=== PATIENT | female | born 1955 | race Caucasian/White ===

== ENCOUNTER 2020-04-16 08:56 | Outpatient (CLI) | payer OTHER, SELFPAY ==
--- NOTE | ~2020-04-16 | MM_ITS ---
EXAMINATION: MM screening [facility] BI w april HISTORY: Screening mammogram TECHNIQUE: Craniocaudal and mediolateral oblique 3-D tomosynthesis images were obtained and synthetic 2-D images were generated. CAD analysis was submitted and interpreted. COMPARISON: 01/28/2019, 10/11/2017, 09/25/2016 bilateral digital screening mammogram examinations BREAST PARENCHYMAL COMPOSITION: There are scattered areas of fibroglandular density. FINDINGS: Occasional benign calcifications. Stable mild fibroglandular asymmetry. There is no evidenc e of suspicious mass, calcification, or architectural distortion to suggest malignancy in either [address]. There has been no suspicious interval change. IMPRESSION: 1. No mammographic evidence of malignancy. 2. Recommend routine screening mammography in one year. BI-RADS Category 2: Benign finding(s). Reviewed, dictated and finalized at location A.
== END 2020-04-16 08:57 | disposition home or self-care (01) ==
PROVIDERS: PCP Internal Medicine; Visit Provider Internal Medicine
DX: Z12.31 Encounter for screening mammogram for malignant neoplasm of breast (principal)
CPT/HCPCS: 77063; 77067

== ENCOUNTER 2020-09-27 01:52 | Outpatient (CLI) | payer OTHER, SELFPAY ==
[2020-09-27 18:35] LABS: SARS-CoV-2 RNA PCR Negative
== END 2020-09-27 01:53 | disposition home or self-care (01) ==
LOC: ANHCOVIDDT 01:52
PROVIDERS: PCP Internal Medicine; Visit Provider Surgery
DX: Z01.812 Encounter for preprocedural laboratory examination (principal); Z20.828 Contact with and (suspected) exposure to other viral communicable diseases
CPT/HCPCS: 87635; C9803; U0003

== ENCOUNTER 2020-09-30 00:12 | Day surgery (SDC) | payer OTHER, SELFPAY ==
[2020-09-23 08:21] VITALS: BMI 24.5
--- NOTE | 2020-09-29 12:14 | P.PNAN_ITS ---
Anes - Initial Pre Proc Eval Procedure: Operation Date: 09/30/20 07:30 Proposed Procedures p Screening Colonoscopy - Hugo Braga DO Date/Time: 09/29/20 12:14 Surgeon: Hugo Braga DO Pre Op Diagnosis: History Of Colon Polyps Patient Data Age: 64 Gender: F Height: 1.73 m Weight: 73 kg Allergies Allergy/AdvReac Type Severity Reaction Status Date / Time No Known Allergies Allergy Verified 09/30/20 06:19 Home Medications Medication Instructions Recorded Confirmed Type calcium carbonate-vitamin D3 1 tablet PO DAILY 09/23/20 09/30/20 History [Calcium with Vitamin D] lisinopril 5 mg PO DAILY 09/23/20 09/30/20 History magnesium 400 mg PO DAILY 09/23/20 09/30/20 History Patient hx anesthesia problems: none Family hx anesthesia problems: none [facility] Past Medical History Medical History (Updated 09/29/20 @ 12:15 by Mitesh Christian DO) Hypertension Surgical History Surgical History (Updated 09/29/20 @ 12:15 by Mitesh Christian DO) History of bilateral breast reduction surgery Family History Family History (System 10/20/19 @ 16:32 by Tila Gardner) Other Family history of arthritis Hypertension Social History Social History (System 10/20/19 @ 16:32 by Tila Gardner) Smoking status: Never smoker Alcohol intake: current Drinks per week: 7 Alcohol use details: one glass of wine daily Living arrangements: with family Gender identity (if verbalized by the patient): Female Spiritual care concerns: No Anes - Eval Final PreProcedure Day of Procedure 09/29/20 12:14 Patient weight: normal Heart: regular rate and rhythm Lungs: clear to auscultation and normal air movement Airway: Mallampati scale class 1 Neurological: alert and oriented Last oral intake: >/= 8 hours ASA classification: II Emergent: no Anesthetic plan: proceed Anesthesia type and monitoring: general GIVS and standard monitoring Informed Consent: The patient's anesthetic plan and its attendant risks and benefits were discussed with the patient/family/POA. Questions were solicited and answers provided to the satisfaction of the patient/family/POA.
[2020-09-30 06:21] VITALS: BP 143/81; PULSE 68; RESP 16; TEMP 37; O2SAT 99
[2020-09-30] MEDS: LACTATED RINGERS 1,000 ML 150 ML IV CONT (06:29)
--- NOTE | 2020-09-30 07:30 | PM.IMHP ---
H&P: HPI History of Present Illness Date/Time: 09/30/20 07:30 Chief Complaint: hx colon polyps Narrative: Kylie Olson is a 65 year old female who presents for colonoscopy. Last done 5 years ago. Polyps removed at that time. No fam hx colon cancer. Her mom does have UC. She denies any major changes in the last 5 years. Review of Systems Review of Systems: All systems reviewed & are unremarkable except as noted in HPI and below Constitutional: Constitutional: Denies chills, Denies fever(s), Denies headache(s) and Denies weight loss Eyes: Eyes: Denies change in vision ENT: Denies dizziness, Denies headache(s), Denies neck mass and Denies throat swelling Cardiovascular: Cardiovascular: Denies chest pain, Denies lightheadedness and Denies dyspnea Respiratory: Respiratory: Denies cough, Denies dyspnea and Denies wheezing Gastrointestinal: Gastrointestinal: Denies abdominal pain, Denies change in bowel habits, Denies nausea and Denies vomiting Genitourinary: Genitourinary: Denies hematuria and Denies dysuria Musculoskeletal: Musculoskeletal: Reports as per HPI Integumentary/Breasts: Skin/Breast: Reports as per HPI Neurologic: Denies dizziness and Denies headache(s) Allergic/Immunologic: Allergic/Immunologic: Denies throat swelling and Denies wheezing PMFSH Past Medical History Medical History Hypertension Surgical History Surgical History History of bilateral breast reduction surgery Family History Family History Other Family history of arthritis Hypertension Social History Social History Smoking status: Never smoker Alcohol intake: current Drinks per week: 7 Alcohol use details: one glass of wine daily Living arrangements: with family Gender identity (if verbalized by the patient): Female Spiritual care concerns: No Meds Home Medications and Allergies Home Medications Medication Instructions Recorded Confirmed Type calcium carbonate-vitamin D3 1 tablet PO DAILY 09/23/20 09/30/20 History [Calcium with Vitamin D] lisinopril 5 mg PO DAILY 09/23/20 09/30/20 History magnesium 400 mg PO DAILY 09/23/20 09/30/20 History Allergies Allergy/AdvReac Type Severity Reaction Status Date / Time No Known Allergies Allergy Verified 09/30/20 06:19 Vital Signs Vital Signs - 24 hr 09/30/20 06:21 Temperature 37.0 C Pulse Rate 68 Respiratory Rate 16 Blood Pressure 143/81 H Pulse Oximetry 99 Exam Const: General: no acute distress and alert Orientation/consciousness: patient oriented x3 HENMT: Head: normocephalic and atraumatic Ears: hearing grossly normal bilaterally General nose exam: Normal nares present Mouth: Yes Normal oral and palatal mucosa present Eyes: Periorbital: periorbital findings normal Sclera: sclerae normal EOM: EOMs intact bilaterally Neck: Neck: normal visual inspection, no lymphadenopathy and trachea midline Chest: Chest palpation & inspection: normal inspection of the chest Resp: Effort & Inspection: normal respiratory effort Auscultation: clear to auscultation bilaterally Cardio: Jugular venous distension: no JVD Rate: regular rate Rhythm: regular rhythm Heart sounds: S1 normal heart sound present and S2 normal heart sound present Peripheral pulses: Peripheral pulses 2+ throughout GI: Inspection: normal to inspection GI Palp: Yes Soft to palpation, No Tenderness to palpation present (GI), No Guarding due to palpation present (GI) and No Rebound tenderness present Percussion: Yes normal to percussion Auscultation: normal bowel sounds : General: Yes no CVA tenderness Back/Spine/Pelvis: Back: no CVA tenderness Neuro: General: patient oriented x3, no focal motor deficits and CN's II-XI intact bilatera
[2020-09-30 08:04] VITALS: BP 119/68; PULSE 66; RESP 20; O2SAT 99
[2020-09-30 08:14] VITALS: BP 135/77; PULSE 58; RESP 22; O2SAT 100
[2020-09-30 08:24] VITALS: BP 140/81; PULSE 69; RESP 18; O2SAT 100
== END 2020-09-30 08:37 | disposition home or self-care (01) ==
PROVIDERS: PCP Internal Medicine; Visit Provider Surgery
PROC: 0DJD8ZZ Inspection of Lower Intestinal Tract, Via Natural or Artificial Opening Endoscopic (ICD-10-PCS; CPT 45378; principal; 2020-09-30 07:30)
DX: Z12.11 Encounter for screening for malignant neoplasm of colon (principal); Z86.010 Personal history of colon polyps; I10 Essential (primary) hypertension
CPT/HCPCS: 45378; 87635; C9803; J2704; J7120; U0003

== ENCOUNTER 2021-04-19 10:41 | Outpatient (CLI) | payer OTHER, SELFPAY ==
--- NOTE | ~2021-04-19 | MM_ITS ---
EXAMINATION: MM screening [facility] BI w april HISTORY: Screening mammogram TECHNIQUE: Craniocaudal and mediolateral oblique 3-D tomosynthesis images were obtained and synthetic 2-D images were generated. CAD analysis was submitted and interpreted. COMPARISON: 04/16/2020, 01/28/2019, 10/11/2017 BREAST PARENCHYMAL COMPOSITION: There are scattered areas of fibroglandular density. FINDINGS: There is no evidence of suspicious mass, calcification, or architectural distortion to sugg est malignancy in either breast. There has been no suspicious interval change. IMPRESSION: 1. No mammographic evidence of malignancy. 2. Recommend routine screening mammography in one year. BI-RADS Category 1: Negative Reviewed, dictated and finalized at location A.
== END 2021-04-19 10:42 | disposition home or self-care (01) ==
PROVIDERS: PCP Internal Medicine; Visit Provider Nurse Practitioner Women's Health
DX: Z12.31 Encounter for screening mammogram for malignant neoplasm of breast (principal)
CPT/HCPCS: 77063; 77067

== ENCOUNTER 2022-04-21 08:21 | Outpatient (CLI) | payer BC, SELFPAY ==
--- NOTE | ~2022-04-21 | MM_ITS ---
EXAMINATION: MM screening [facility] BI w april HISTORY: Screening TECHNIQUE: Craniocaudal and mediolateral oblique 3-D tomosynthesis images were obtained and synthetic 2-D images were generated. CAD analysis was submitted and interpreted. COMPARISON: Comparison to multiple prior studies sequentially, with oldest reviewed study dated 09/15. BREAST PARENCHYMAL COMPOSITION: There are scattered areas of fibroglandular density. FINDINGS: There is no evidence of suspicious mass, calcification, or architectural distortion to sugg est malignancy in either breast. There has been no suspicious interval change. IMPRESSION: 1. No mammographic evidence of malignancy. 2. Recommend routine screening mammography in one year. BI-RADS Category 1: Negative Reviewed, dictated and finalized at location A.
== END 2022-04-21 08:22 | disposition home or self-care (01) ==
LOC: CHSIMG 08:23
PROVIDERS: PCP Internal Medicine; Visit Provider Nurse Practitioner Women's Health
DX: Z12.31 Encounter for screening mammogram for malignant neoplasm of breast (principal)
CPT/HCPCS: 77063; 77067

== ENCOUNTER 2023-03-15 12:20 | Outpatient (CLI) | payer MEDICARE, SELFPAY ==
--- NOTE | ~2023-03-15 | DEXA_ITS ---
Bone Density Report Name: ROBYN NANCE Age: 67 Sex: Female Ethnicity: White Date of : 1955 Indication: postmenopausal; screening for osteoporosis; asthma or emphysema; Referring Provider: BILLY BRADEN Study: Bone densitometry was performed. Exam Date: March 15, 2023 Accession number: [id number] Bone Density: Region BMD T-score Z-score Classification AP Spine(L1-L4) 1.010 -0.3 1.5 Normal Femoral Neck (Left) 0.831 -0.2 1.4 Normal Total Hip (Left) 0.954 0.1 1.3 Normal Femoral Neck (Right) 0.832 -0.2 1.4 Normal Total Hip (Right) 0.984 0.3 1.6 Normal Femoral Neck Mean 0.831 -0.2 1.4 Normal Total Hip Mean 0.969 0.2 1.5 Normal World Health Organization criteria for BMD impression classify patients as: Normal (T-score at or above -1.0), Osteopenia (T-score between -1.0 and -2.5), or Osteoporosis (T-score at or below -2.5). 10-year Fracture Risk: FRAX not reported because: All T-scores for Spine Total, Hip Total, Femoral Neck at or above -1.0 Clinical Information Provided by Patient: Has used the following medications: Vitamin D, Calcium Has the following medical conditions: Asthma or Emphysema Patient maximum height was 68 Menopause Age: 63 Does not regularly consume dairy products Drinks caffeinated beverages Onset of menses at age 18 Number of children 0 Impression: The patient has normal bone mass. Discussion: BONE DENSITY IS ABOVE THE MINIMUM DESIRABLE LEVEL AT ALL SKELETAL SITES TESTED. This patient?s bone mineral density is above the minimum desirable level (T-score -1.0 or better) at all sites measured. The patient should follow a healthful lifestyle (good nutrition with adequate calcium and vitamin D, and appropriate weight-bearing exercise). Follow-Up: Consider repeating this study in 5 years or sooner if there is some new clinical indication. Reported by: Dr. Romel Topete on 03/15/2023 12:51:00 PM. Reviewed, dictated and finalized at location A. [facility]
== END 2023-03-15 12:21 | disposition home or self-care (01) ==
LOC: CHSIMG 12:25
PROVIDERS: PCP Internal Medicine
DX: Z13.820 Encounter for screening for osteoporosis (principal); Z78.0 Asymptomatic menopausal state
CPT/HCPCS: 77080

== ENCOUNTER 2023-04-23 08:20 | Outpatient (CLI) | payer MEDICARE, SELFPAY ==
--- NOTE | ~2023-04-23 | MM_ITS ---
EXAMINATION: MM screening [facility] BI w april HISTORY: Screening mammogram TECHNIQUE: Craniocaudal and mediolateral oblique 3-D tomosynthesis images were obtained and synthetic 2-D images were generated. CAD analysis was submitted and interpreted. COMPARISON: 04/21/2022, 04/19/2021, 05/13/2020 bilateral screening mammogram examinations BREAST PARENCHYMAL COMPOSITION: There are scattered areas of fibroglandular density. FINDINGS: Stable benign left calcifications. There is no evidence of suspicious mass, calcification, or architectural distortion to suggest malignancy in either breast. There has been no suspicious inte rval change. IMPRESSION: 1. No mammographic evidence of malignancy. 2. Recommend routine screening mammography in one year. BI-RADS Category 2: Benign finding(s). Reviewed, dictated and finalized at location C.
== END 2023-04-23 08:21 | disposition home or self-care (01) ==
LOC: CHSIMG 08:23
PROVIDERS: PCP Internal Medicine
DX: Z12.31 Encounter for screening mammogram for malignant neoplasm of breast (principal)
CPT/HCPCS: 77063; 77067

== ENCOUNTER 2024-05-01 13:44 | Outpatient (CLI) | payer MEDICARE, SELFPAY ==
--- NOTE | ~2024-05-01 | MM_ITS ---
EXAMINATION: MM screening [facility] BI w april HISTORY: Screening TECHNIQUE: Craniocaudal and mediolateral oblique 3-D tomosynthesis images were obtained and synthetic 2-D images were generated. CAD analysis was submitted and interpreted. COMPARISON: Comparison to multiple prior studies sequentially, with oldest reviewed study dated 09/15. BREAST PARENCHYMAL COMPOSITION: Not dense: There are scattered areas of fibroglandular density. FINDINGS: There is no evidence of suspicious mass, calcification, or architectural distortion to sugg est malignancy in either breast. There has been no suspicious interval change. IMPRESSION: 1. No mammographic evidence of malignancy. 2. Recommend routine screening mammography in one year. BI-RADS Category 1: Negative Reviewed, dictated and finalized at location B.
== END 2024-05-01 13:45 | disposition home or self-care (01) ==
LOC: CHSIMG 13:49
PROVIDERS: PCP Internal Medicine
DX: Z12.31 Encounter for screening mammogram for malignant neoplasm of breast (principal)
CPT/HCPCS: 77063; 77067

== ENCOUNTER 2024-05-13 14:26 | Outpatient (CLI) | payer MEDICARE, SELFPAY | END 2024-05-13 14:27 | disposition home or self-care (01) | LOC: CHSLAB 14:29 | PROVIDERS: PCP Internal Medicine; Visit Provider Specialist | DX: D48.5 Neoplasm of uncertain behavior of skin (principal); L57.0 Actinic keratosis | CPT/HCPCS: 88305 ==

== ENCOUNTER 2025-03-19 12:50 | Outpatient (CLI) | payer MEDICARE, SELFPAY ==
--- NOTE | ~2025-03-19 | DEXA_ITS ---
Bone Density Report Name: ROBYN NANCE Age: 69 Sex: Female Ethnicity: White Date of : 1955 Indication: postmenopausal; screening for osteoporosis; height loss; Referring Provider: UNKNOWN, UNKNOWN Study: Bone densitometry was performed. Exam Date: March 19, 2025 Accession number: [id number] Bone Density: Region BMD T-score Z-score Classification AP Spine(L1-L4) 0.965 -0.7 1.2 Normal Femoral Neck (Left) 0.855 0.1 1.7 Normal Total Hip (Left) 0.992 0.4 1.8 Normal Femoral Neck (Right) 0.813 -0.3 1.3 Normal Total Hip (Right) 0.950 0.1 1.4 Normal Femoral Neck Mean 0.834 -0.1 1.5 Normal Total Hip Mean 0.971 0.2 1.6 Normal World Health Organization criteria for BMD impression classify patients as: Normal (T-score at or above -1.0), Osteopenia (T-score between -1.0 and -2.5), or Osteoporosis (T-score at or below -2.5). 10-year Fracture Risk: FRAX not reported because: All T-scores for Spine Total, Hip Total, Femoral Neck at or above -1.0 Previous Exams: Region Exam Age BMD T-score BMD Change BMD Change Date g/cm2 vs Baseline vs Previous AP Spine (L1-L4) 03/19/2025 69 0.965 -0.7 -0.045 (-4.4%) -0.045 (-4.4%) 03/15/2023 67 1.010 -0.3 Total Hip(Left) 03/19/2025 69 0.992 0.4 0.039 (4.1%)# 0.039 (4.1%)# 03/15/2023 67 0.954 0.1 Total Hip(Right) 03/19/2025 69 0.950 0.1 -0.034 (-3.5%) -0.034 (-3.5%) 03/15/2023 67 0.984 0.3 *Denotes significance at 95% confidence level, LSC for AP Spine = 0.022 g/cm2, LSC for Total Hip = 0.027 g/cm2 # Denotes dissimilar scan types or analysis methods Clinical Information Provided by Patient: Patient maximum height was 69 Menopause Age: 63 Does not regularly consume dairy products Drinks caffeinated beverages Onset of menses at age 18 Impression: The patient has normal bone mass. No significant bone loss was observed. Discussion: BONE DENSITY IS ABOVE THE MINIMUM DESIRABLE LEVEL AT ALL SKELETAL SITES TESTED. This patient?s bone mineral density is above the minimum desirable level (T-score -1.0 or better) at all sites measured. The patient should follow a healthful lifestyle (good nutrition with adequate calcium and vitamin D, and appropriate weight-bearing exercise). Follow-Up: Consider repeating this study in 5 years or sooner if there is some new clinical indication. Reported by: JUANY on 03/19/2025 1:20:00 PM. Reviewed, dictated and finalized at location A.
--- OUTSIDE RECORDS SUMMARY | 2025-03-19 13:24 | XMS_ITS | Referral Summary ---
Author Organization [facility] Medical [facility] Building [address] Address [address] [place] [address] Care Team Providers Care Resident Care Coordinator Name Role Phone John Renee MD Primary Care Provider Encounters Date Type Department Care Team Description 12/22/2024 Telephone [facility] [address] [facility] [address] [place] [address] Bina Castro from Last 3 Months Allergies No known active allergies Medications calcium carbonate-vitami n D3 400-133.3 mg-unit tablet Take 600 mg by mouth 2 (two) times a day. Active magnesium oxide 500 mg capsule Take 400 mg by mouth 2 (two) times a day. Active lisinopril (PRINIVIL,ZESTRI L) 10 mg tablet Take 10 mg by mouth daily Active Active Problems Problem Noted Date Diagnosed Date HSV (herpes simplex virus) infection 08/08/2018 Cataract of both eyes 08/08/2018 Assessment & Plan (08/08/2018 8:59 AM CDT): Not visually significant at this time. 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 Asthma 02/24/2015 Overview (01/18/2017): Asthma Seasonal allergy 02/24/2015 Overview (01/18/2017): Seasonal allergy Social History Tobacco Use Types Packs/Day Years Used Date Smoking Tobacco: Never Smokeless Tobacco: Never Alcohol Use Standard Drinks/Week Comments Yes 2 (1 standard drink = 0.6 oz pur e alcohol) 2 glasses daily PHQ-2 Answer Date Recorded PHQ-2 Total Score (If total score is 3 or more points, staff should administer the PHQ-9) 0 07/13/2022 Comments No Sex and Gender Information Value Date Recorded Sex Assigned at Not on file Legal Sex Female 3:38 AM CO[employer]EE [employer] Gender Identity Not on file Sexual Orientation Not on file 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 file Not on file 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 Not on file Not on fi le Last Filed Vital Signs Vital Sign Reading Time Taken Comments Blood Pressure 124/80 08/30/2023 1:30 PM [employer]EE [employer] Pulse - - Temperature - - Respiratory Rate - - Oxygen Saturation - - Inhaled Oxygen Concentration - - Weight 78.4 kg (172 lb 14.4 oz) 08/30/2023 1:30 PM [employer]EE [employer] Height 172.7 cm (5' 8) 08/30/2023 1:30 PM [employer]EE [employer] Body Mass Index 26.29 08/30/2023 1:30 PM [employer]EE [employer] Plan of Treatment Not on file Procedures Procedure Name Priority Date/Time Associated Diagnosis Comments PAP AND HIGH RISK HPV, REFLEX TO GENOTYPING Routine 07/13/2022 10:38 AM CDT Well woman exam MAMMOGRAPHY Schedule Routine, Read Routine (OP Routine) 04/19/2021 DEXA AXIAL SKELETON BONE DENSITY 1 OR MORE SITES Schedule Routine, Read Routine (OP Routine) 01/28/2019 from Last 3 Months or Most Recently Relevant to Health Maintenance Results * Pap and High Risk HPV, reflex to Genotyping (07/13/2022 10:38 AM CDT) CLINICAL INFORMATION: [facility] Comment:None given LMP [facility] Comment:PM Previous Pap [facility] Comment:NONE GIVEN Prev. Bx [facility] Comment:NONE GIVEN SOURCE: [facility] Comment:Cervix, Endocervix Pap, specimen adequacy [facility] Comment:SATISFACTORY FOR INDIRA LUATION HPV interp [facility] Comment: Negative for intraepithelial lesion or malignancy. 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 Comment: LM, CT(ASCP) CT screening location: [place] [address] [address] [place] [place] [id number] [facility] Comment: EXPLANATORY NOTE: The Pap is a screening test for cervical cancer. It is not a diagnostic test and is subject to false negative and false positive results. It is most reliable when a satisfactory sample, regularly obtained, is submitted with relevant clinical findings and history, and when the Pap result is evaluated along with historic and current clinical information. Human papillomavirus DNA, High Risk E6/E7 Not Detected NOT DETECTED [facility] Comment: Not Detected High Risk HPV types (16,18,31,33,35,39,45,51,52, 56,58,59,66,68) were not detected. Other HPV types which cause anogenital lesions may be present. The significance of the other types of HPV in malignant processes has not been established. Methodology: Real Time PCR Thin prep 07/13/2022 10:3 8 AM CDT 07/14/2022 1:42 AM CDT Cathy Evans NP LAB CYTOLOGY ORDERABLES F inal Result [place] [address] [address] [place] [address] Luis Angel J[place] [address] [address] [facility] [place] [address] * MAMMOGRAPHY (04/19/2021) Anatomical Region Laterality Modality Breast Mammography Cathy Evans NP IMG MAMMO PROCEDURES Linda l Result * Dexa Axial Skeleton Bone Density 1 or 2 Site (01/28/2019) Anatomical Region Laterality Modality Body N/A Radiographic Consuelo ging us Historical Provider MD [facility] DXA PROCEDURES Final Result from Last 3 Months or Most Recently Relevant to Health Maintenance Insurance MEDICARE [facility] Care Teams Resident Care Coordinator Relationship Specialty Start Date End Date John Renee MD PCP - General 03/05/17
--- OUTSIDE RECORDS SUMMARY | 2025-03-19 13:24 | XMS_ITS | Patient Health Record ---
Author Organization [facility] Address [address] [facility] [address] [place] [address] Care Team Providers Care Car Porter Name Role Phone Shelia Silva Primary Care Provider Allergies No Known Allergies Results Component Value Reference Range Flag Notes Colonoscopy Reviewed date:01/26/2025 06:11:56 PM Interpretation:05/13/24 Performing Lab: Notes/Report: 05/13/24 URINE DIPSTICK Reviewed date:01/06/2025 10:16:46 AM Interpretation: Performing Lab: Notes/Report: COLOR yellow APPEARANCE cloudy GLUCOSE Negative BILIRUBIN Negative KETONES Negative SPECIFIC GRAVITY 1.010 OCCULT BLOOD Negative PH 6.5 NITRITE POSITIVE LEUKOCYTE ESTERASE LARGE Protein Negative URINE CULTURE Reviewed date:01/09/2025 01:36:21 PM Interpretation: Performing Lab:[facility], [facility]-[id number], [id number] Carlos Manuel Lewis MD Notes/Report: FASTING: NO CULTURE, URINE, ROUTINE SEE NOTE A CULTURE, URINE, ROUTINE Micro Number: [id number] Test Status: Final Specimen Source: Urine Specimen Quality: Adequate Result: Greater than 100,000 CFU/mL of Escherichia coli E.coli INT DEMETRIS AMOX/CLAVULANATE I 16 AMP/SULBACTAM R >=32 CEFAZOLIN NR <=4 2 CEFEPIME S <=0.12 CEFTAZIDIME S <=1 CEFTRIAXONE S <=0.25 CIPROFLOXACIN I 0.5 GENTAMICIN R >=16 IMIPENEM S <=0.25 LEVOFLOXACIN I 1 MEROPENEM S <=0.25 NITROFURANTOIN S 32 PIP/TAZOBACTAM S <=4 TRIMETHOPRIM/SULFA R >=320 S = Susceptible I = Intermediate R = Resistant NS = Not susceptible SDD = Susceptible Dose Dependent * = Not Tested NR = Not Reported NN = See Therapy Comments THERAPY COMMENTS Note 1: For infections other than uncomplicated UTI caused by E. coli, K. pneumoniae or P. mirabilis: Cefazolin is resistant if DEMETRIS > or = 8 mcg/mL. (Distinguishing susceptible versus intermediate for isolates with DEMETRIS < or = 4 mcg/mL requires additional testing.) Note 2: For uncomplicated UTI caused by E. coli, K. pneumoniae or P. mirabilis: Cefazolin is susceptible if DEMETRIS <32 mcg/mL and predicts susceptible to the oral agents cefaclor, cefdinir, cefpodoxime, cefprozil, cefuroxime, cephalexin and loracarbef. CLIENT EDUCATION TRACKING Reviewed date:01/09/2025 01:36:20 PM Interpretation: Performing Lab:[facility] VERDE[id number], [id number] Carlos Manuel Lewis MD Notes/Report: FASTING: NO CLIENT EDUCATION TRACKING The Requisition we received did not include a [employer] account number. To prevent delays in testing and processing of your orders please provide the following information with every order submitted: [facility] account number and account name Client address Client phone and fax number NPI number of ordering physician along with the physician name. CBC w/Differential (Peripher al Smear) Reviewed date:12/25/2024 12:24:06 PM Interpretation: Performing Lab:[facility] CALLES-[address] [place] [address], [address], [id number] Lorin Walden Notes/Report: 0; 0; 0; 0 FASTING:YES FASTING: YES WHITE BLOOD CELL COUNT 6.2 3.8-10.8 Thousand/uL N RED BLOOD CELL COUNT 4.45 3.80-5.10 Million/uL N HEMOGLOBIN 13.9 11.7-15.5 g/dL N HEMATOCRIT 42.2 35.0-45.0 % N MCV 94.8 80.0-100.0 fL N MCH 31.2 27.0-33.0 pg N MCHC 32.9 32.0-36.0 g/dL N For adults, a slight decrease in the calculated MCHC value (in the range of 30 to 32 g/dL) is most likely not clinically significant; however, it should be interpreted with caution in correlation with other red cell parameters and the patient's clinical condition. RDW 11.8 11.0-15.0 % N PLATELET COUNT 297 140-400 Thousand/uL N MPV 9.9 7.5-12.5 fL N ABSOLUTE NEUTROPHILS 2939 6144-6305 cells/uL N ABSOLUTE LYMPHOCYTES 2275 850-3900 cells/uL N ABSOLUTE MONOCYTES 558 200-950 cells/uL N ABSOLUTE EOSINOPHILS 378 15-500 cells/uL N ABSOLUTE BASOPHILS 50 0-200 cells/uL N NEUTROPHILS 47.4 N LYMPHOCYTES 36.7 N MONOCYTES 9.0 N EOSINOPHILS 6.1 N BASOPHILS 0.8 N CMP Reviewed date:12/25/2024 12:24:06 PM Interpretation: Performing Lab:[facility], [address], [facility] Lorin Walden Notes/Report: 0; 0; 0; 0 FASTING:YES FASTING: YES GLUCOSE 83 65-99 mg/dL N Fasting reference interval UREA NITROGEN (BUN) 14 7-25 mg/dL N CREATININE 0.71 0.50-1.05 mg/dL N EGFR 93 > OR = 60 mL/min/1.73m2 N SODIUM 138 135-146 mmol/L N POTASSIUM 4.8 3.5-5.3 mmol/L N CHLORIDE 103 98-110 mmol/L N CARBON DIOXIDE 28 20-32 mmol/L N CALCIUM 9.5 8.6-10.4 mg/dL N PROTEIN, TOTAL 6.7 6.1-8.1 g/dL N ALBUMIN 4.4 3.6-5.1 g/dL N GLOBULIN 2.3 1.9-3.7 g/dL (calc) N ALBUMIN/GLOBULIN RATIO 1.9 1.0-2.5 (calc) N BILIRUBIN, TOTAL 0.4 0.2-1.2 mg/dL N ALKALINE PHOSPHATASE 55 37-153 U/L N AST 19 10-35 U/L N ALT 11 6-29 U/L N Lipid Panel Reviewed date:12/25/2024 12:24:06 PM Interpretation: Performing Lab:[id number], [id number] Carlos Manuel Lewis MD Notes/Report: 0; 0; 0; 0 FASTING:YES FASTING: YES CHOLESTEROL, TOTAL 216 <200 mg/dL H HDL CHOLESTEROL 67 > OR = 50 mg/dL N TRIGLYCERIDES 126 <150 mg/dL N LDL-CHOLESTEROL 125 H Reference range: <100 Desirable range <100 mg/dL for primary prevention; <70 mg/dL for patients with CHD or diabetic patients with > or = 2 CHD risk factors. LDL-C is now calculated using the Addy-Morales calculation, which is a validated novel method providing better accuracy than the Friedewald equation in the estimation of LDL-C. Addy SS et al. JAYDEN. 2013;310(81): 6099-7807 (http://Ceon.Meliuz/faq/ARP183) CHOL/HDLC RATIO 3.2 <5.0 (calc) N NON HDL CHOLESTEROL 149 <130 mg/dL (calc) H For patients with diabetes plus 1 major ASCVD risk factor, treating to a non-HDL-C goal of <100 mg/dL (LDL-C of <70 mg/dL) is considered a therapeutic option. TSH W/REFLEX TO FT4 Reviewed date:12/25/2024 12:24:07 PM Interpretation: Performing Lab:[facility]-[id number], [id number] Carlos Manuel Lewis MD Notes/Report: 0; 0; 0; 0 FASTING:YES FASTING: YES TSH W/REFLEX TO FT4 2.94 0.40-4.50 mIU/L N Reason For Referral No Information Medications Medication SIG (Take, Route, Frequency, Duration) Notes Start Date End Date Status Lisinopril 10 MG Tablet 1 tablet Orally Once a day; Duration: 90 days Active Cefdinir 300 MG Capsule 1 cap Orally twi ce daily; Duration: 7 days 01/13/2025 Active Mupirocin 2 % Ointment External; Duratio n: 14 Days Active Multivitamin Active Acyclovir 200 MG Capsule Oral; Duration: 90 Days prn Active Pantoprazole Sodium 20 MG Tablet Delayed Release TAKE 1 TABLET BY MOUTH EVERY DAY FOR 90 DAYS; Duration: 90 prn Active Montelukast Sodium 10 MG Tablet 1 tablet Orally Once a day; Duration: 30 days Active Loratadine 10 MG Tablet 1 tablet Orally Once a day; Duration: 90 days Active Immunizations Vaccine Route Administration Date Status Comme nts Afluria Quadrivalent Unknown 12/13/2022 Administered Covid- Janseen Unknown 01/01/2021 Administered COVID-19 PFIZER Unknown 09/10/2021 Administered Flu Quad, Split Unknown 08/09/2022 Administered Prevnar 20 Unknown 01/11/2023 Administered Shingrix Unknown 07/07/2020 Administered Tdap Unknown 11/23/2020 Administered Social History Tobacco Use: Social History Observation Description Date Details (start date - stop date) Never Smoker NA - NA Social History Social Determinants Social Info Question Answer Notes PRAPARE What is your current housing situation? I have housing Are you worried about losing your housing? No What is the highest level of school that you have finished? High school diploma or GED What is your current work situation? 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 Check all that apply I do not have problems meeting my needs Has lack of transportation k ept you from medical appointments, meetings, work or from getting things needed for daily living? No How often do you see or talk to people that you care about and feel close to? (For example: talking to friends on the phone, visiting friends or family, going to adventism or club meetings) More than 5 times a week How stressed are you? Stress is when someone feels tense, nervous, anxious, or can't sleep at night because their mind is troubled Not at all In the past year have you sp ent more than 2 nights in a row in a longterm, mcc, shelter center, or juvenile correctional facility? No Are you a refugee? No What country are you from? [place] Do you feel physically and e motionally safe where you currently live? Yes In the past year, have you b een afraid of your partner or ex-partner? No PRAPARE Score: 2 Drug/Alcohol: Social Info Question Answer Notes AUDIT-C (Standard) Did you have a drink containing alcohol in the past year? Yes How often did you have six or more drinks on one occasion in the past year? Never (0 point) How many drinks did you have on a typical day when you were drinking in the past year? 1 or 2 drinks (0 point) How often did you have a drink containing alcohol in the past year? Daily or almost daily (4 points) Points 4 Interpretation Positive OPIOID Risk Tool (2018 Edition) Family Hx Alcohol? Yes Family Hx Illegal Drugs? No Family Hx Rx Drugs? No Personal Hx Alcohol? No Personal Hx Illegal Drugs? No Personal Hx Rx Drugs? No Age between 16-45 years? No History of Preadolescent Sexual Abuse? No ADD, OCD, Bipolar, Schizophrenia? No Depression? No TOTAL SCORE 1 Risk Level for Opioid Use low Tobacco Use: Social Info Question Answer Notes Tobacco Control (Standard) Tobacco use: Nonsmoker Additional Details Category Social Info Options Details Miscellaneous: Marital status: Occupation: Retired Section Notes: TOB: Never smoker EtOh: 5x a week, 1 drink TOB: Never smoker EtOh: 5x a week, 1 drink TOB: Never smoker EtOh: 5x a week, 1 drink TOB: Never smoker EtOh: 5x a week, 1 drink TOB: Never smoker EtOh: 5x a week, 1 drink Problems Problem Type SNOMED Code ICD Code Onset Dates Problem Status W/U Status Risk Notes Problem Essential hypertension (66726003) Essential hypertension (I10) Active confirmed Problem Memory loss (24561396) Memory loss (R41.3) Active confirmed Problem Seasonal allergy (398050405) Seasonal allergies (J30.2) Active confirmed Problem Dyslipidemia (251207806) Dyslipidemia (E78.5) Active confirmed Problem Grieving (F43.21) Active confirmed Vital Signs Heart Rate 76 /min 01/13/2025 Temperature 97.8 degrees Fahrenheit 01/13/2025 Oximetry 97 % 01/13/2025 Blood pressure diastolic 72 mm Hg 01/13/2025 Height 68 in 01/13/2025 Blood pressure systolic 122 mm Hg 01/13/2025 Weight 156 lbs 01/13/2025 BMI 23.72 kg/m2 01/13/2025 Procedures Procedure Date Ordered Date Performed Result Body Sit e Advanced Care Planning 01/13/2025 undefined CCM Care Plan 01/13/2025 undefined Encounters Encounter Location Date Provider Diagnosis [facility] [address] [place] [address] [address] [place] [address] 01/06/2025 Shelia Silva BMI 23.0-23.9, adult Z68.23 ; Dysuria R30.0 ; Acute cystitis without hematuria N30.00 ; Essential hypertension I10 ; Seasonal allergies J30.2 and Memory loss R41.3 [facility] [address] [place] [address] 01/13/2025 Shelia Silva Encounter for genera l adult medical examination without abnormal findings Z00.00 ; Alcohol screening Z13.89 ; Advanced care planning/counseling discussion Z71.89 ; Essential hypertension I10 ; Seasonal allergies J30.2 ; Memory loss R41.3 ; Dyslipidemia E78.5 ; Acute cystitis without hematuria N30.00 ; Post-menopausal Z78.0 ; Encounter for screening for osteoporosis Z13.820 and Screening mammogram, encounter for Z12.31 [facility] [address] [place] [address] 01/09/2025 [facility] [address] [place] [address] 12/14/2024 [facility] [address] [place] [address] 01/05/2025 Shelia Silva Assessments Encounter Date Diagnosis (ICD Code) Assessment Notes Treatment Notes Treatment Clinical Notes Section Notes 01/06/2025 BMI 23.0-23.9, adult (ICD-10 - Z68.23) 01/13/2025 Encounter for general adult medical examination without abnormal findings (ICD-10 - Z00.00) 01/13/2025 Alcohol screening (ICD-10 - Z13.89) 01/13/2025 Advanced care planning/chief counsel ing discussion (ICD-10 - Z71.89) [facility] Plan of Care: The chronic conditions this patient is experiencing were discussed. Goals were discussed and plans were formulated based on those goals. The Patient was informed of their ability to contact their assigned healthcare administration intern at any time. Direct phone numbers were discussed and handed out. If there are any barriers that develop from this time forward they should contact their healthcare administration intern unless they believe their condition to be an emergency. 01/06/2025 Dysuria (ICD-10 - R30.0) 01/06/2025 Acute cystitis without hematuria (ICD-10 - N30.00) FU urine culture 01/13/2025 Essential hypertension (ICD-10 - I10) 01/13/2025 Seasonal allergies (ICD-10 - J30.2) 01/06/2025 Essential hypertension (ICD-10 - I10) 01/06/2025 Seasonal allergies (ICD-10 - J30.2) 01/13/2025 Memory loss (ICD-10 - R41.3) Pt is very busy - she has less going on in [place] - moniter - labs normal 01/13/2025 Dyslipidemia (ICD-10 - E78.5) ASCVD 8.1% - discussed cardiovascular risk factors she does not want a statin, she will cont lifestyle changes and we will moniter 01/06/2025 Memory loss (ICD-10 - R41.3) Pt is very busy - she has less going on in [place] - moniter - labs normal 01/13/2025 Acute cystitis without hematuria (ICD-10 - N30.00) use cefdinir now after macrobid 01/13/2025 Post-menopausal (ICD-10 - Z78.0) 01/13/2025 Encounter for screening for osteoporosis (ICD-10 - Z13.820) 01/13/2025 Screening mammogram, encounter for (ICD-10 - Z12.31) 01/13/2025 Other Reviewed exist ing advanced directives, already on the chart, with patient. If patient failed to sign the prior directives, failed to bring in the (at home) advanced directives for our charting- I again asked patient and any family member to do so. If we already have advanced directives on our chart, I asked patient if there have been any changes as recommended by CMS. I asked any new changes to advanced directives to be brought in for us to scan on the chart. Patient agreed. Plan Of Treatment Pending Test Test Name Order Date DEXA 01/13/2025 Mammogram Screening bilateral 01/13/2025 Future Test Test Name Order Date TSH W/REFLEX TO FT4 01/13/2026 CBC w/Differential (Peripheral Smear) Lipid Panel 01/13/2026 CMP 01/13/2026 Next Appt Details Provider Name:Shelia Silva, 01/13/2026 10:15:00 AM, [address], [place], [address], Insurance Providers Payer Name Payer Address Payer Phone Subscriber Number Group Number Insured Name Patient Relationship to Insured Coverage Start Date Coverage End Date Medicare of [place] / [facility] [address] [address] [place] [phone] [id number] Kylie Olson Self - patient is the insured [facility] [address] [place] [address] [id number] Kylie Olson Self - patient is the insured 2 Medical (General) History Medical History History ICD Code Hypertension I10 Surgical History Surgery Date(Month/Year) Breast reduction 2010 Hospitalization History Reason Date(Month/Year) See Surgical history
--- OUTSIDE RECORDS SUMMARY | 2025-03-19 13:24 | XMS_ITS | Clinical Summary ---
Author Organization [facility] Address [address] [place] [address] Phone Care Team Providers Care Comic Book Artist Name Role Phone John Renee MD Primary Care Provider Allergies No known active allergies Medications montelukast (SINGULAIR) 10 mg Oral tablet Take 10 mg by mouth daily at bedtime. Active acyclovir (ZOVIRAX) 200 mg Oral capsule Take 200 mg by mouth daily. 02/22/2011 Active magnesium oxide (MAG-OX) 400 mg Oral tabletIndication s:PM Take 400 mg by mouth daily. Indications : PM Active Fish Oil-Huntley-3 Fatty Acids 300-1,000 mg Oral CapIndications:S TOP02/16/2011 Take by mouth. Indications : STOP 1 Active oxyCODONE-acetam inophen (PERCOCET) 5-325 mg Oral tablet Take 2 Tabs by mouth every 4 hours as needed (For Pain Scale 4-6). 40 Tab 0 02/24/2011 Active diazepam (VALIUM) 2 mg Oral tablet Take 1 Tab by mouth every 6 hours. 20 Tab 1 02/24/2011 Active cephALEXin (KEFLEX) 500 mg Oral capsule Take 1 Cap by mouth 4 times daily. 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 Gender Identity Not on file Sexual Orientation Not on file Last Filed Vital Signs Vital Sign Reading Time Taken Comments Blood Pressure 118/77 02/25/2011 8:33 AM CDT Pulse 80 02/25/2011 8:33 AM CDT Temperature 35.7 C (96.2 F) 02/25/2011 8:33 AM CDT Respiratory Rate 18 02/25/2011 8:33 AM CDT Oxygen Saturation 98% 02/25/2011 8:33 AM CDT Inhaled Oxygen Concentration - - Weight 77.1 kg (170 lb) 02/24/2011 6:19 AM CDT Height 172.7 cm (5' 8) 02/22/2011 4:11 PM CDT Body Mass Index 25.85 02/22/2011 4:11 PM CDT Plan of Treatment Health Maintenance Due Date Last Done Comments DTAP/TDAP/TD VACCINES (1 - Tdap) 1976 PNEUMOCOCCAL VACCINE 50+ YEARS (1 of 2 - PCV) 09/30/19 76 BREAST CANCER SCREENING 1997 COLORECTAL SCREENING 2002 Colorectal Cancer Screening 2002 FIT-DNA Q 3 years 2002 FIT/FOBT Q 1 year 2002 Flex Sig/CT Colonography Q 5 years 2002 ZOSTER VACCINE (1 of 2) 2007 RSV VACCINE (60+ or ) (1 - Risk 60-74 years 1-dose series) 2017 OSTEOPOROSIS SCREENING 2022 INFLUENZA VACCINE (#1) 2024 Insurance [employer] [facility] [employer] [facility] O OPEN ACCESS Advance Directives For more information, please contact: [phone] * Full Code (Latest Code Status on File) Date Activated Date Inactivated Comments 02/24/2011 9:56 AM 02/25/2011 1:12 PM * Full Code Date Activated Date Inactivated Comments 02/24/2011 6:53 AM 02/24/2011 9:56 AM * Full Code Date Activated Date Inactivated Comments 02/24/2011 6:08 AM 02/24/2011 6:53 AM Care Teams Comic Book Artist Relationship Specialty Start Date End Date John Renee MD [address] [place] [address] PCP - General 10/05/15
--- OUTSIDE RECORDS SUMMARY | 2025-03-19 13:24 | XMS_ITS | Clinical Summary ---
Author Organization [facility] Address [address] [place] [address] Care Team Providers Care Order Puller Name Role Phone John Renee MD Primary Care Provider [phone] Allergies No known active allergies Medications calcium [...] Seasonal allergy 02/24/2015 Overview (01/18/2017): Seasonal allergy Encounters Date Type Department Care Team Description 12/22/2024 Telephone [facility] [address] [place] [address] [address] [place] [address] Bina Castro from Last 3 Months Surgical History Surgery Date Site/Laterality Comments REDUCTION MAMMOPLASTY Breast Reduction REDUCTION MAMMAPLASTY Bilateral Family History Medical History Relation Name Comments Hypertension Father Hypertension; Osteoporosis Maternal Grandmother Osteopo rosis; Dementia Mother Hypertension Mother Hypertension; Osteoporosis Mother Other Mother Cancer of the s tomach lining; Breast cancer Paternal Grandmother Relation Name Status Comments Father Maternal Grandmother Mother Paternal Grandmother Social History Tobacco Use Types Packs/Day Years [...] on file Legal Sex Female 3:38 AM EROSION CONTROL SPECIALIST Gender Identity Not on file Sexual Orientation Not on file 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 Not on file 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 on file 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 Not on file Not on file Not on fi le Obstetrics History Para Term AB IAB SAB Ectopic Multiple Livin g Live Births 0 Last Filed Vital Signs Vital Sign Reading Time Taken Comments Blood Pressure 124/80 08/30/2023 1:30 PM EROSION CONTROL SPECIALIST Pulse - - Temperature - - Respiratory Rate - - Oxygen Saturation - - Inhaled Oxygen Concentration - - Weight 78.4 kg (172 lb 14.4 oz) 08/30/2023 1:30 PM EROSION CONTROL SPECIALIST Height 172.7 cm (5' 8) 08/30/2023 1:30 PM EROSION CONTROL SPECIALIST Body Mass Index 26.29 08/30/2023 1:30 PM EROSION CONTROL SPECIALIST Plan of Treatment Health Maintenance Due Date Last Done Comments Colon Cancer Screening-Colonoscopy 1957 Fall Risk Assessment 1957 Hepatitis C Screening 1957 Hepatitis B Screening 1975 Pneumococcal vaccine 65+ (1 of 2 - PCV) 1976 Zoster Vaccine (1 of 2) 2007 DTaP/Tdap/Td Vaccine (2 - Td or Tdap) 07/06/2019 07/06/2009 Osteoporosis Screening-Bone Density Scan 01/28/2021 01/28/2019, 01/28/2019 Breast Cancer Screening-Mammogram 04/19/2022 04/19/2021, 04/16/2020, 01/28/2019, Additional history exists Well Visit 65+ 07/13/2023 07/13/2022, 04/15, 04/15/2020, Additional history exists Depression Screening 08/30/2024 08/30/2023, 07/13/2022, 05/10/2021, Additional history exists Influenza Vaccine (Season Ended) 2025 07/23/20, 06/15/2015 Cervical Cancer Screening Discontinued 07/13/2022, 07/2019 Procedures Procedure Name Priority Date/Time Associated Diagnosis [...] Genotyping (07/13/2022 10:38 AM CDT) CLINICAL INFORMATION: [facility] Comment:None given LMP [facility] Comment:PM Previous Pap [facility] Comment:NONE GIVEN Prev. Bx [facility] Comment:NONE GIVEN SOURCE: [facility] Comment:Cervix, Endocervix Pap, specimen adequacy [facility] Comment:SATISFACTORY FOR INDIRA LUATION HPV interp [facility] Comment: Negative for intraepithelial lesion or malignancy. Atrophic pattern; predominantly parabasal cells Transit Planner Jose [facility] Comment: LM, CT(ASCP) CT screening location: [place] [address] [place], [place] [address] Comment [facility] Comment: EXPLANATORY NOTE: The Pap is a [...] High Risk E6/E7 Not Detected NOT DETECTED [facility] Comment: Not Detected High Risk HPV types (16,18,31,33,35,39,45,51,52, 56,58,59,66,68) were not detected. Other HPV types which cause anogenital lesions may be present. The significance of the other types of HPV in malignant processes has not been established. Methodology: Real Time PCR Thin prep 07/13/2022 10:3 8 AM CDT 07/14/2022 1:42 AM CDT Cathy Evans NP LAB CYTOLOGY ORDERABLES F inal Result SIMONA [facility] [address] [place] [address] [facility] [address] [facility] [place] [address] * MAMMOGRAPHY (04/19/2021) Anatomical Region Laterality Modality Breast Mammography Cathy Evans NP IMG MAMMO PROCEDURES Linda l Result * Dexa Axial Skeleton Bone Density 1 or 2 Site (01/28/2019) Anatomical Region Laterality Modality Body N/A Radiographic Consuelo ging Historical Provider MD IMG DXA PROCEDURES Final Result from Last 3 Months or Most Recently Relevant to Health Maintenance Insurance MEDICARE [employer] Care Teams Order Puller Relationship Specialty Start Date End Date John Renee MD PCP - General 03/05/17
== END 2025-03-19 12:51 | disposition home or self-care (01) ==
LOC: CHSIMG 12:53
PROVIDERS: PCP Internal Medicine
DX: Z78.0 Asymptomatic menopausal state (principal)
CPT/HCPCS: 77080

== ENCOUNTER 2025-05-12 12:23 | Outpatient (CLI) | payer MEDICARE, SELFPAY ==
--- NOTE | ~2025-05-12 | MM_ITS ---
EXAMINATION: MM screening [facility] BI w april HISTORY: Screening TECHNIQUE: Craniocaudal and mediolateral oblique 3-D tomosynthesis images were obtained and synthetic 2-D images were generated. CAD analysis was submitted and interpreted. COMPARISON: Comparison to multiple prior studies sequentially, with oldest reviewed study dated 12/2019. BREAST PARENCHYMAL COMPOSITION: Not dense: There are scattered areas of fibroglandular density. FINDINGS: Stable asymmetries upper outer quadrant of the left breast with associated coarse calcifica tions. There is no evidence of suspicious mass, calcification, or architectural distortion to suggest malignancy in either breast. There has been no suspicious interval change. IMPRESSION: 1. No mammographic evidence of malignancy. 2. Recommend routine screening mammography in one year. BI-RADS Category 2: Benign finding(s). Reviewed, dictated and finalized at location B.
--- OUTSIDE RECORDS SUMMARY | 2025-05-12 12:29 | XMS_ITS | Encounter Summary ---
Author Organization [facility] Address [address] [place] [address] Care Team Providers Care Fur Sorter Name Role Phone John Renee MD Primary Care Provider [phone] Tim Gibson MD Unavailable [phone] Encounter Details Date Type Department Care Team (Late st Contact Info) Description 12/24/2018 Abstract [facility] AT [facility] [address] [place] [address] Tim Gibson MD [address] [place] [address] Social History Tobacco Use Types Packs/Day Years Used Date Smoking Tobacco: Never Smokeless Tobacco: Never Alcohol Use Standard Drinks/Week Comments Yes 1.7 (1 standard drink = 0.6 oz p ure alcohol) Comments Unknown Sex and Gender Information Value Date Recorded Sex Assigned at Not on file Legal Sex Female 8:34 PM CDT Gender Identity Not on file Sexual Orientation Not on file Occupation Industry Job Start Date Job End Date works at [employer] Not on file Not on file Not on file documented as of this encounter Plan of Treatment Not on file documented as of this encounter Procedures Procedure Name Priority Date/Time Associated Diagnosis Comments BMP (MEDICAL NECESSITY) Routine 12/24/2018 documented in this encounter Results * BMP (MEDICAL NECESSITY) (12/24/2018) SODIUM S/P/B 142 POTASSIUM S/P/B 4.1 CHLORIDE S/P/B 104 CO2 30 GLUCOSE 89 mg/dL BUN 16 CREATININE S/P/B 0.75 0.5 - 1.0 CALCIUM S/P/B 9.2 12/24/2018 us Doc [facility] Abstract LABORATORY Final Result documented in this encounter Visit Diagnoses Not on filedocumented in this encounter Care Teams Fur Sorter Relationship Specialty Start Date End Date John Renee MD [address] [place] [address] PCP - General INTERNAL MEDICINE 01/17/18 Tim Gibson MD [address] [place] [address] [facility] Assistant CARDIOVASCULAR DISEASE 01/17/18 documented as of this encounter
--- OUTSIDE RECORDS SUMMARY | 2025-05-12 12:29 | XMS_ITS | Clinical Summary ---
Author Organization [facility] Address [address] [place] [address] Care Team Providers Care Wiping Cloth Cutter Name Role Phone John Renee MD Primary Care Provider Tim Gibson MD Unavailable [phone] Allergies No known active allergies Medications acyclovir 400 MG tablet Take 400 mg by mouth 2 (two) times daily. Active Calcium Carb-Cholecalci ferol (CALCIUM CARBONATE-VITAM IN D) 600-200 MG-UNIT tablet Take 1 tablet by mouth daily. Active magnesium oxide 400 MG tablet Take 400 mg by mouth nightly at bedtime. Active LISINOPRIL 10 MG tablet TAKE ONE TABLET BY MOUTH EVERY MORNING 90 tablet 09/27/2020 Active Active Problems Problem Noted Date Diagnosed Date Palpitations 01/03/2020 Essential hypertension 12/06/2018 Abnormal EKG 02/25/2018 Asthma ([facility]) 01/25/2018 Hyperlipidemia 01/25/2018 Resolved Problems Problem Noted Date Diagnosed Date Resolved Date Elevated BP without diagnosis of hypertension 01/26/20 18 12/06/2018 Family History Medical History Relation Comments COPD Father Heart Father Heart Maternal Grandfather Hypertension Maternal Grandmother Asthma Mother Cancer Mother Crohns Disease Mother Hypertension Mother COPD Paternal Grandfather Cancer Paternal Grandmother Diabetes Paternal Grandmother Relation Status Comments Father Maternal Grandfather Maternal Grandmother Mother Paternal Grandfather Paternal Grandmother Social History Tobacco Use Types [...] 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 Not on file Not on file Last Filed Vital Signs Vital Sign Reading Time Taken Comments Blood Pressure 120/72 12/18/2019 11:33 AM TELEMARKETER SUPERVISOR Pulse 60 12/18/2019 11:29 AM TELEMARKETER SUPERVISOR Temperature - - Respiratory Rate 18 07/12/2018 11:57 AM CDT Oxygen Saturation 97% 12/18/2019 11:29 AM TELEMARKETER SUPERVISOR Inhaled Oxygen Concentration - - Weight 76.2 kg (168 lb) 12/18/2019 11:29 AM TELEMARKETER SUPERVISOR Height 172.7 cm (5' 8) 12/18/2019 11:29 AM TELEMARKETER SUPERVISOR Body Mass Index 25.54 12/18/2019 11:29 AM TELEMARKETER SUPERVISOR Plan of Treatment Health Maintenance Due Date Last Done Comments Colorectal Cancer Screening Colonoscopy (10 Years) 1955 Hepatitis C 1975 Pneumococcal Vaccine: 50+ Ye ars (1 of 2 - PCV) 1976 Mammogram Screening 1997 Zoster Vaccines (1 of 2) 2007 RSV Immunization or 60+ Years (1 - Risk 60-74 years 1-dose series) 2017 DTaP, Tdap and Td Vaccines ( 2 - Td or Tdap) 07/06/2019 07/06/2009 Dexa Scan (General) 2022 COVID-19 Vaccine (1 - 2023-2 5 season) 2024 Meningococcal B Vaccine Aged Out No l onger eligible based on patient's age to complete this topic Meningococcal Vaccine Aged Out No vivian kamar eligible based on patient's age to complete this topic RSV Immunizations Under 20 Months Aged Out No longer eligible based on patient's age to complete this topic Insurance [facility] Care Teams Wiping Cloth Cutter Relationship Specialty Start Date End Date John Renee MD [address] [place] [address] PCP - General INTERNAL MEDICINE 01/17/18 Tim Gibson MD [address] [place] [address] [place] [facility] Service Floor Worker CARDIOVASCULAR DISEASE 01/17/18
--- OUTSIDE RECORDS SUMMARY | 2025-05-12 12:30 | XMS_ITS | Clinical Summary ---
Author Organization [facility] Address [address] [place] [address] Phone Care Team Providers Care Crop Production Advisor Name Role Phone John Renee MD Primary Care Provider [phone] Allergies No known active allergies Medications montelukast (SINGULAIR) 10 mg Oral tablet Take 10 mg by mouth daily at bedtime. Active acyclovir (ZOVIRAX) 200 mg Oral capsule Take 200 mg by mouth daily. 02/22/2011 Active magnesium oxide (MAG-OX) 400 mg Oral tabletIndication s:PM Take 400 mg by mouth daily. Indications : PM Active Fish Oil-[place]-3 Fatty Acids 300-1,000 mg Oral CapIndications:S TOP02/16/2011 [...] on file Legal Sex Female 6:00 AM TUB PULLER Gender Identity Not on file Sexual Orientation [...] 2017 OSTEOPOROSIS SCREENING 2022 INFLUENZA VACCINE (#1) 2025 Insurance [employer] O OPEN ACCESS Advance Directives For more information, please contact: [phone] * Full Code (Latest Code Status on File) Date Activated Date Inactivated Comments 02/24/2011 9:56 AM 02/25/2011 1:12 PM * Full Code Date Activated Date Inactivated Comments 02/24/2011 6:53 AM 02/24/2011 9:56 AM * Full Code Date Activated Date Inactivated Comments 02/24/2011 6:08 AM 02/24/2011 6:53 AM Care Teams Crop Production Advisor Relationship Specialty Start Date End Date John Renee MD [address] [place] [address] PCP - General 10/05/15
--- OUTSIDE RECORDS SUMMARY | 2025-05-12 12:30 | XMS_ITS | Patient Health Record ---
Author Organization [facility] Address [address] [facility] [address] [place] [address] Care Team Providers Care Sanitation Truck Cleaner Name Role Phone Shelia Silva Primary Care Provider Allergies No Known Allergies Results Component Value Reference Range Flag Notes DEXA Reviewed date:04/02/2025 10:04:32 AM Interpretation: Performing Lab: Notes/Report: Colonoscopy Reviewed date:01/26/2025 06:11:56 PM Interpretation:05/13/24 Performing Lab: Notes/Report: 05/13/24 CLIENT EDUCATION TRACKING Reviewed date:01/09/2025 01:36:20 PM Interpretation: Performing Lab:[id number]-[id number] [id number] Carlos Manuel Lewis MD Notes/Report: FASTING: NO CLIENT EDUCATION TRACKING The Requisition we received did not include a [facility] account number. To prevent delays in testing and processing of your orders please provide the following information with every order submitted: [facility] account number and account name Client address Client phone and fax number NPI number of ordering physician along with the physician name. URINE CULTURE Reviewed date:01/09/2025 01:36:21 PM Interpretation: Performing Lab:[facility] [id number] [id number] Carlos Manuel Lewis MD Notes/Report: FASTING: NO CULTURE, URINE, ROUTINE SEE NOTE A CULTURE, URINE, ROUTINE Micro Number: [id number] Test Status: Final Specimen Source: Urine Specimen [...] cefdinir, cefpodoxime, cefprozil, cefuroxime, cephalexin and loracarbef. URINE DIPSTICK Reviewed date:01/06/2025 10:16:46 AM Interpretation: Performing Lab: Notes/Report: COLOR yellow APPEARANCE cloudy GLUCOSE Negative BILIRUBIN Negative KETONES Negative SPECIFIC GRAVITY 1.010 OCCULT BLOOD Negative PH 6.5 NITRITE POSITIVE LEUKOCYTE ESTERASE LARGE Protein Negative TSH W/REFLEX TO FT4 Reviewed date:12/25/2024 12:24:07 PM Interpretation: Performing Lab:[id number] [id number] Carlos Manuel Lewis MD Notes/Report: 0; 0; 0; 0 FASTING:YES FASTING: YES TSH W/REFLEX TO FT4 2.94 0.40-4.50 mIU/L N Lipid Panel Reviewed date:12/25/2024 12:24:06 PM Interpretation: Performing Lab:Lu[facility] Angel VER[facility]-[id number] Carlos Manuel Lewis MD Notes/Report: 0; 0; [...] of LDL-C. Addy SS et al. JAYDEN. 2013;310(19): 8552-9091 ([email or web address]) CHOL/HDLC RATIO 3.2 <5.0 (calc) N NON HDL CHOLESTEROL 149 <130 mg/dL (calc) H For patients with diabetes plus 1 major ASCVD risk factor, treating to a non-HDL-C goal of <100 mg/dL (LDL-C of <70 mg/dL) is considered a therapeutic option. CMP Reviewed date:12/25/2024 12:24:06 PM Interpretation: Performing Lab:STEVAN, [facility]-[address], [address], [facility] Center[facility]gavhRR[address] Lorin Walden Notes/Report: 0; 0; 0; 0 [...] U/L N ALT 11 6-29 U/L N CBC w/Differential (Peripher al Smear) Reviewed date:12/25/2024 12:24:06 PM Interpretation: Performing Lab:STEVAN, [facility]-[address], [address], [facility] CenterWiirpXV[address] Lorin Walden Notes/Report: 0; 0; 0; 0 [...] 9.9 7.5-12.5 fL N ABSOLUTE NEUTROPHILS 2939 5184-3667 cells/uL N ABSOLUTE LYMPHOCYTES 2275 850-3900 cells/uL N ABSOLUTE MONOCYTES 558 200-950 cells/uL N ABSOLUTE EOSINOPHILS 378 15-500 cells/uL N ABSOLUTE BASOPHILS 50 0-200 cells/uL N NEUTROPHILS 47.4 N LYMPHOCYTES 36.7 N MONOCYTES 9.0 N EOSINOPHILS 6.1 N BASOPHILS 0.8 N Reason For Referral No Information Medications [...] phone, visiting friends or family, going to anabaptism or club meetings) More than 5 times a week How stressed are you? Stress is when someone feels tense, nervous, anxious, or can't sleep at night because their mind is troubled Not at all In the past year have you sp ent more than 2 nights in a row in a chcf, chcf, snf center, or juvenile correctional facility? No Are [...] W/U Status Risk Notes Problem Essential hypertension (37771021) Essential hypertension (I10) Active confirmed Problem Memory loss (52135784) Memory loss (R41.3) Active confirmed Problem Seasonal allergy (738840804) Seasonal allergies (J30.2) Active confirmed Problem Dyslipidemia (133546175) Dyslipidemia (E78.5) Active confirmed Problem Adjustment disorder with depressed mood (05123628) Grieving (F43.21) Active confirmed Vital Signs Heart [...] undefined Encounters Encounter Location Date Provider Diagnosis [facility] [address] [place] [address] 01/06/2025 Shelia [facility] BMI 23.0-23.9, adult Z68.23 ; Dysuria R30.0 ; Acute cystitis without hematuria N30.00 ; Essential hypertension I10 ; Seasonal allergies J30.2 and Memory loss R41.3 [facility] [address] [place] [address] 01/13/2025 Shelia [facility] Encounter for genera l adult medical examination without abnormal findings Z00.00 ; Alcohol screening Z13.89 ; Advanced care planning/counseling discussion Z71.89 ; Essential hypertension I10 ; Seasonal allergies J30.2 ; Memory loss R41.3 ; Dyslipidemia E78.5 ; Acute cystitis without hematuria N30.00 ; Post-menopausal Z78.0 ; Encounter for screening for osteoporosis Z13.820 and Screening mammogram, encounter for Z12.31 [facility] [address] [place] [address] 01/09/2025 Shelia [facility] [address] [place] [address] 04/03/2025 [facility] [address] [place] [address] 12/14/2024 [facility] [address] [place] [address] 01/05/2025 Shelia [facility] Assessments Encounter Date Diagnosis (ICD Code) Assessment Notes Treatment Notes Treatment Clinical Notes Section Notes 01/06/2025 BMI 23.0-23.9, adult (ICD-10 - Z68.23) 01/13/2025 Encounter for general adult medical examination without abnormal findings (ICD-10 - Z00.00) 01/13/2025 Alcohol screening (ICD-10 - Z13.89) 01/13/2025 Advanced care planning/substance abuse counselor ing discussion (ICD-10 - Z71.89) CCM Plan of Care: The chronic conditions this patient is experiencing were discussed. Goals were discussed and plans were formulated based on those goals. The Patient was informed of their ability to contact their assigned nurse care manager at any time. Direct phone numbers were discussed and handed out. If there are any barriers that develop from this time forward they should contact their nurse care manager unless they believe their condition to be [...] - she has less going on in [place] - moniter - labs normal 01/13/2025 Dyslipidemia (ICD-10 - E78.5) ASCVD 8.1% - discussed cardiovascular risk factors she does not want a statin, she will cont lifestyle changes and we will moniter 01/06/2025 Memory loss (ICD-10 - R41.3) Pt is very busy - she has less going on in [place] - moniter - labs normal 01/13/2025 Acute [...] Treatment Pending Test Test Name Order Date Mammogram Screening bilateral 01/13/2025 Future Test Test Name Order Date TSH W/REFLEX TO FT4 01/13/2026 CBC w/Differential (Peripheral Smear) Lipid Panel 01/13/2026 CMP 01/13/2026 Next Appt Details Provider Name:Shelia Silva, 01/13/2026 10:15:00 AM, [address], [place], [address], Insurance Providers Payer Name Payer Address Payer Phone Subscriber Number Group Number Insured Name Patient Relationship to Insured Coverage Start Date Coverage End Date Medicare of [place] / [facility] [address] [address] [place] [address] [phone] [id number] Kylie Olson Self - patient is the insured 2 [facility] [address] [place] [address] [phone] [id number] Kylie Olson Self - patient is the insured 2 Medical (General) History Medical History History ICD Code Hypertension I10 Surgical History Surgery Date(Month/Year) Breast reduction 2010 Hospitalization History Reason Date(Month/Year) See Surgical history
--- OUTSIDE RECORDS SUMMARY | 2025-05-12 12:30 | XMS_ITS | Clinical Summary ---
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 file Not on file Not on fi le Obstetrics History Para Term AB IAB SAB Ectopic Multiple Livin g Live Births 0 Last Filed Vital Signs Vital Sign Reading Time Taken Comments Blood Pressure 124/80 08/30/2023 1:30 PM CUSTOMER SERVICE RECEPTIONIST Pulse - - Temperature - - Respiratory Rate - - Oxygen Saturation - - Inhaled Oxygen Concentration - - Weight 78.4 kg (172 lb 14.4 oz) 08/30/2023 1:30 PM CUSTOMER SERVICE RECEPTIONIST Height 172.7 cm (5' 8) 08/30/2023 1:30 PM CUSTOMER SERVICE RECEPTIONIST Body Mass Index 26.29 08/30/2023 1:30 PM CUSTOMER SERVICE RECEPTIONIST Plan of Treatment Health Maintenance Due Date [...] 07/13/2022, 05/10/2021, Additional history exists Influenza Vaccine (#1) 2025 07/23/2018, 2014 Cervical Cancer Screening Discontinued 07/13/2022, 07/2019 Procedures [...] Genotyping (07/13/2022 10:38 AM CDT) CLINICAL INFORMATION: [facility] Comment:None given LMP [facility] Comment:PM Previous Pap [facility] Comment:NONE GIVEN Prev. Bx [facility] Comment:NONE GIVEN SOURCE: [facility] Comment:Cervix, Endocervix Pap, specimen adequacy [facility] Comment:SATISFACTORY FOR INDIRA LUATION HPV interp [facility] Comment: Negative for intraepithelial lesion or malignancy. Atrophic pattern; predominantly parabasal cells Tool Room Machinist [facility] Comment: LM, CT(ASCP) CT screening location: [place] [address] [place], [place] [address] Comment [facility] Comment: EXPLANATORY NOTE: The Pap is [...] High Risk E6/E7 Not Detected NOT DETECTED [facility] Comment: Not Detected High Risk HPV types (16,18,31,33,35,39,45,51,52, 56,58,59,66,68) were not detected. Other HPV types which cause anogenital lesions may be present. The significance of the other types of HPV in malignant processes has not been established. Methodology: Real Time PCR Thin prep 07/13/2022 10:3 8 AM CDT 07/14/2022 1:42 AM CDT Cathy Evans NP LAB CYTOLOGY ORDERABLES F inal Result [facility] [address] [place] [address] [facility] [address] [facility] [address] [facility] [place] [address] * MAMMOGRAPHY (04/19/2021) Anatomical Region Laterality Modality Breast Mammography Cathy Evans NP IMG MAMMO PROCEDURES Linda l Result * Dexa Axial Skeleton Bone Density 1 or 2 Site (01/28/2019) Anatomical Region Laterality Modality Body N/A Radiographic Consuelo ging Historical Provider IMG DXA PROCEDURES Final Result from Last 3 Months or Most Recently Relevant to Health Maintenance Insurance MEDICARE [employer] Care Teams Risk Control Director Relationship Specialty Start Date End Date John Renee MD PCP - General 03/05/17
--- OUTSIDE RECORDS SUMMARY | 2025-05-12 12:30 | XMS_ITS | Referral Summary ---
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 Not on file Not on fi le Last Filed Vital Signs Vital Sign Reading Time Taken Comments Blood Pressure 124/80 08/30/2023 1:30 PM DOCK CLERK Pulse - - Temperature - - Respiratory Rate - - Oxygen Saturation - - Inhaled Oxygen Concentration - - Weight 78.4 kg (172 lb 14.4 oz) 08/30/2023 1:30 PM DOCK CLERK Height 172.7 cm (5' 8) 08/30/2023 1:30 PM DOCK CLERK Body Mass Index 26.29 08/30/2023 1:30 PM DOCK CLERK Plan of Treatment Not on file Procedures [...] Genotyping (07/13/2022 10:38 AM CDT) CLINICAL INFORMATION: [employer] [facility] Comment:None given [facility]MP [facility] Comment:PM Previous Pap [employer] [facility] Comment:NONE GIVEN Prev. Bx [employer] [facility] Comment:NONE GIVEN SOURCE: [employer] [facility] Comment:Cervix, Endocervix Pap, specimen adequacy [employer] [facility] Comment:SATISFACTORY FOR INDIRA LUATION HPV interp [facility] Comment: Negative for intraepithelial lesion or malignancy. Atrophic pattern; predominantly parabasal cells Legal Instruments Examiner [facility] Comment: LM, CT(ASCP) CT screening location: [place] [address] [place] [address] Comment [facility] Comment: EXPLANATORY NOTE: The Pap is [...] High Risk E6/E7 Not Detected NOT DETECTED [facility] [employer] [facility] Comment: Not Detected High Risk HPV types (16,18,31,33,35,39,45,51,52, 56,58,59,66,68) were not detected. Other HPV types which cause anogenital lesions may be present. The significance of the other types of HPV in malignant processes has not been established. Methodology: Real Time PCR Thin prep 07/13/2022 10:3 8 AM CDT 07/14/2022 1:42 AM CDT Cathy Evans NP LAB CYTOLOGY ORDERABLES F inal Result [place] [address] [place] [address] [facility] [address] [facility] [place] [address] * MAMMOGRAPHY (04/19/2021) Anatomical Region Laterality Modality Breast Mammography us Cathy Evans NP IMG MAMMO PROCEDURES Linda l Result * Dexa Axial Skeleton Bone Density 1 or 2 Site (01/28/2019) Anatomical Region Laterality Modality Body N/A Radiographic Consuelo ging Historical Provider MD [facility] DXA PROCEDURES Final Result from Last 3 Months or Most Recently Relevant to Health Maintenance Insurance MEDICARE [facility] Care Teams Hydroponics Grower Relationship Specialty Start Date End Date John Renee MD PCP - General 03/05/17
== END 2025-05-12 12:24 | disposition home or self-care (01) ==
LOC: CHSIMG 12:27
PROVIDERS: PCP Internal Medicine
DX: Z12.31 Encounter for screening mammogram for malignant neoplasm of breast (principal)
CPT/HCPCS: 77063; 77067